=== PATIENT | female | born 1990 | race Caucasian/White ===

== ENCOUNTER 2017-10-05 08:55 | Emergency (ER) | payer OTHER ==
[~2017-10-05] VITALS: Wt 111.1 kg
[~2017-10-05 08:55] MED LIST: AMOXICILLIN500 MG PO; BACTRIM DS 8001 TA1 PO; CEPHALEXIN500 M1 PO; CIPRO500 MG PO; FEOSOL65 MG PO; FLEXERIL10 MG PO; FLEXERIL5 MG PO; HYDROCODONE BIT1 T11 PO; IBU800 MG PO; IBUPROFEN 30 M800 MG PO; MACROBID100 M1 PO; MEDROL DOSEPAK4 MG PO; MOTRIN800 MG PO; Motrin,Rufen800 MG PO; PRENATAL1 TA2 PO; TRAMADOL HCL50 MG PO; VALACYCLOVIR; VALTREX1 GM PO; VALTREX500 MG PO; VICODIN 5/500 505 MG PO; VICODIN 500 MG-1 TAB PO; ZITHROMAX Z PA250 MG PO; ZITHROMAX250 MG PO
[2017-10-05] MEDS ORDERED: METRONIDAZOLE500 M1 PO (09:08)
[2017-10-05 09:49] LABS: BASO # 0.1 10*3/uL (0.0-0.1); BASO % 0.6 % (0.0-1.0); EOS # 0.1 10*3/uL (0.0-0.4); EOS % 0.9 % (1.0-4.0); HEMATOCRIT 37.7 % (37.0-47.0); HEMOGLOBIN 12.6 g/dl (12.0-16.0); LYMPH # 1.9 10*3/uL (1.3-4.4); LYMPH % 22.7 % (27.0-41.0); MEAN CELL VOLUME 87.3 fl (81.0-99.0); MEAN CORPUSCULAR HGB 29.2 pg (27.0-31.0); MEAN CORPUSCULAR HGB CONC 33.4 g/dl (33.0-37.0); MEAN PLATELET VOLUME 9.4 fl (9.6-12.3); MONO # 0.8 10*3/uL (0.1-1.0); MONO % 8.8 % (3.0-9.0); NEUT # 5.7 10*3/uL (2.3-7.9); NEUT % 66.6 % (47.0-73.0); PLATELET COUNT AUTOMATED 287 10*3/uL (130-400); RED BLOOD COUNT 4.32 10*6/uL (4.10-5.10); RED CELL DISTRI WIDTH 12.9 % (0-14.5); WHITE BLOOD COUNT 8.5 10*3/uL (4.8-10.8)
[2017-10-05 10:03] LABS: ALBUMIN 3.4 gm/dl (3.1-4.5); ALKALINE PHOSPHATASE 75 U/L (45-117); BUN 10 mg/dl (7-24); CHLORIDE 100 mmol/L (98-107); CREATININE 0.77 mg/dL (0.55-1.02); LIPASE 187 U/L (73-393); POTASSIUM 3.3 mmol/L (3.5-5.1); SGOT/AST 14 IU/L (3-35); SGPT/ALT 18 U/L (12-78); SODIUM 136 mmol/L (136-145); TOTAL PROTEIN 8.1 gm/dL (6.4-8.2)
[2017-10-05 10:34] LABS: BILIRUBIN NEGATIVE (NEGATIVE); BLOOD TRACE-LYSED (NEGATIVE); CLARITY CLOUDY (CLEAR); COLOR YELLOW (YELLOW); GLUCOSE NEGATIVE (NEGATIVE); KETONE TRACE (NEGATIVE); LEUKO ESTERASE 1+ (NEGATIVE); NITRITE NEGATIVE (NEGATIVE); SPECIFIC GRAVITY 1.025 (1.005-1.030); UROBILINOGEN 0.2 E.U./dl (0.2-1.0)
[2017-10-05 10:47] LABS: BACTERIA 3+; MUCOUS 2+
[2017-10-05] MEDS ORDERED: ZOFRAN ODT4 MG SL (13:03)
[2017-10-05] MEDS ORDERED: MACROBID100 M1 PO (13:03)
== END 2017-10-05 13:26 | disposition home or self-care (01) ==
LOC: ED 08:55
PROVIDERS: Nurse Practitioner Family
DX: N39.0 Urinary tract infection, site not specified (principal); B34.9 Viral infection, unspecified; F17.200 Nicotine dependence, unspecified, uncomplicated; Z91.040 Latex allergy status

== ENCOUNTER → 2017-10-07 | Outpatient (CLI) | payer OTHER ==
[~2017-10-07] MED LIST changes: +METRONIDAZOLE500 M1 PO; +ZOFRAN ODT4 MG SL
== END ==
LOC: US 10:00
DX: Z30.430 Encounter for insertion of intrauterine contraceptive device (principal); R10.9 Unspecified abdominal pain; R10.2 Pelvic and perineal pain

== ENCOUNTER 2018-06-09 18:04 | Emergency (ER) | payer OTHER ==
[~2018-06-09] VITALS: Ht 177.8 cm; Wt 108.9 kg
== END 2018-06-09 19:50 | disposition home or self-care (01) ==
LOC: ED 18:04
DX: S91.311A Laceration without foreign body, right foot, initial encounter (principal); M77.31 Calcaneal spur, right foot; Z23 Encounter for immunization; Z91.040 Latex allergy status; W25.XXXA Contact with sharp glass, initial encounter; Y93.89 Activity, other specified; Y92.89 Other specified places as the place of occurrence of the external cause; Y99.9 Unspecified external cause status

== ENCOUNTER 2018-12-04 16:01 | Emergency (ER) | payer OTHER ==
[~2018-12-04] VITALS: Ht 175.2 cm; Wt 108.9 kg
[2018-12-04] MEDS ORDERED: PREDNISONE10 MG PO (16:47)
[2018-12-04] MEDS ORDERED: OMNICEF300 MG PO (16:47)
[2018-12-04] MEDS ORDERED: ZOFRAN4 MG PO (16:49)
== END 2018-12-04 16:55 | disposition home or self-care (01) ==
LOC: ED 16:01
DX: J02.0 Streptococcal pharyngitis (principal); B27.90 Infectious mononucleosis, unspecified without complication; R03.0 Elevated blood-pressure reading, without diagnosis of hypertension; Z91.040 Latex allergy status